=== PATIENT | female | born 1975 | race Caucasian/White ===

== ENCOUNTER 2023-03-24 06:40 | Day surgery (SDC) | payer OTHER ==
[2023-03-22 10:20] VITALS: BP 114/78
[~2023-03-24] VITALS: Ht 172.7 cm; Wt 109.1 kg
[~2023-03-24 06:40] MED LIST: GINKGO BILOBA40 M1 PO; LIPITOR10 MG; TRULICITY0.75 MG/0. SQ; VITAMIN D31250 MC1 PO
[2023-03-24 07:20] VITALS: BP 108/78
--- NOTE | 2023-03-24 10:28 | NUR ---
03/24/23 1028 Susana Das 1018 PT TO PACU ALERT AND AWAKE, PT COUGHTING FREQUENTLY PILLOW PLACED ON ABD FOR SUPPORT WHEN SHE COUGHS. SMALL SIP OF WATER GIVEN TO PT TO HELP WITH DRY COUGH. PT ARRIVED ON ROOMAIR AND MAINTAINS SATS ABOVE 95% ON ROOM AIR.
[2023-03-24 10:47] VITALS: BP 100/67
--- NOTE | 2023-03-24 10:53 | NUR ---
1035: PT BACK TO DS RM 4 FROM PACU VIA STRETCHER AWAKE AND ALERT. PT COUGHING ON ARRIVAL AND USING PILLOW TO BRACE ABD. PT DENIES PAIN IN ABD OR NAUSEA WITH WATER, TOLERATES 250 MLS. WATER REFILLED AND PT DENIES ANYTHING TO EAT AT THIS TIME. PT PROVIDED PERSONAL CELL PHONE TO CALL . DC CRITERIA EXPLAINED TO PT, CALL LIGHT WITHIN REACH.
[2023-03-24] MEDS ORDERED: HYDROCODON-ACE1 EAC8 PO (11:43)
[2023-03-24 11:47] VITALS: BP 121/76
--- NOTE | 2023-03-24 12:58 | NUR ---
[id number]: PT USES CALL LIGHT TO NOTIFY RN OF URGE TO VOID. PT SITS AT SIDE OF BED PRIOR TO STANDING, DENIES DIZZINESS OR NAUSEA WITH AMBULATION. PT ABLE TO VOID 450 MLS YELLOW URINE WITH NO PROBLEMS, BACK TO DS RM 4 TO GET DRESSED. [id number]: DC INSTRUCTIONS PRESENTED VERBALLY AND WRITTEN TO PT AND SPOUSE, PROVIDED PAIN PRESCRIPTION AND AWARE OF NEED TO TAKE TO PHARMACY. PT DC FROM DS RM 4 VIA WC TO SPOUSE IN PERSONAL VEHICLE AT HOSPITAL ENTRANCE TO HOME.
--- NOTE | 2023-03-25 06:50 | OR ---
[facility] [address] [place], [place] [address] Signed DATE OF OPERATION: 03/24/2023 SURGEON: Bobo Blank MD PREOPERATIVE DIAGNOSES: 1. 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 2. Supraumbilical trocar site incisional hernia (1.3 cm). POSTOPERATIVE DIAGNOSES: 1. 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 2. Incarcerated epigastric hernia (1.3 cm). PROCEDURES: 1. Excision of epigastric lipoma. 2. Primary epigastric herniorrhaphy. ESTIMATED BLOOD LOSS: None. INDICATIONS: Chester is a 47-year-old female with a body mass index of 38. She was referred to me with two issues. Back in 2014, she underwent laparoscopic gastric banding at [facility] in [place], [place]. It was causing her some trouble and she had it removed at [facility] in [place], [place] in October of 2021. There was some concern about a subxiphoid epigastric hernia. This subcutaneous mass cannot be visualized from inside. Therefore, it was left in place. More recently, she had been to her primary care provider. You can feel this mass just below the xiphoid process. It has been causing her a lot of pain. She can also feel a lump just above the umbilicus as well. An ultrasound confirmed the 2.8 x 1.4 x 2.7 cm lipoma just below the xiphoid process and then just above the umbilicus, she has 1.3 cm fascial defect containing fat. She understands there was a differential diagnosis for the fascial defect including epigastric hernia, common, umbilical hernia and trocar site incisional hernia. She had originally lost 100 pounds from the gastric band surgery, but she gained all the way back. She was asked to see me with respect to the above. In the office, I gave her a brochure on hernias and we looked at it carefully. She understands the difference between a primary suture repair and a mesh repair. She also understands that with lipomas, we simply excise those. They have a tendency to recur in the same or other locations. There is risk to her surgery including, but not limited to bleeding, infection, scarring, change in contour of the skin, damage to bowel, infection of mesh requiring removal, recurrent hernias and recurrent lipomas. She had expressed Electronically Signed By: BOBO BLANK MD 03/25/23 0650 PATIENT NAME: CHESTER HARO OPERATIVE REPORT DATE OF : 73 REPORT #: [id number] PHYSICIAN: BOBO BLANK MD PCP: ALONSO EDGAR PA-C REPORT IS CONFIDENTIAL AND NOT TO BE RELEASED WITHOUT AUTHORIZATION [address] [address] Signed understanding and wished to proceed. DESCRIPTION OF PROCEDURE: I met with Chetser and her in our preop area along with our nurse. We all agreed on the two areas and we marked them appropriately. After this, Chester was taken to the operating room and placed in the supine position under general endotracheal tube anesthesia. She was given preoperative antibiotics along with subcutaneous heparin. SCDs were utilized. She was prepped and draped in the usual sterile fashion. We started with a vertical incision over the subxiphoid mass. Sure enough, this proved to be a lipoma. It was fully excised bluntly and with the help of the cautery. We injected local anesthetic into the wound. The wound was irrigated and suctioned out until clear. We closed the dermis with interrupted 3-0 subcuticular Monocryl sutures. The skin edges were reapproximated with a running 5-0 fast absorbing plain gut suture. After this, we made a vertical incision just above the umbilicus over the palpable mass. Indeed, this was herniated fat. We found that it was just above the umbilicus by 1 cm or so. As we worked our way around, we found that it contained a little bit of the falciform ligament. It was secured with a Pean clamp, divided, and then tied with 0 Vicryl ligature. The hernia sac and preperitoneal fat were amputated and passed off the field. We could see that in order to place the mesh, we would have to open up the fascial defect in order to move the falciform ligament. That seemed unnecessary for hernia of the size at this time. We went ahead and closed the small fascial defect transversely with interrupted [id number] and simple #1 Prolene sutures. Indeed, the fascial defect was only about 1.3 cm in diameter. Local anesthetic was injected into the wound. The wound was irrigated and suctioned out until clear. We closed the subcutaneous tissues with interrupted 3-0 Monocryl sutures. The dermis was reapproximated with interrupted 3-0 subcuticular Monocryl sutures. Skin edges were reapproximated with a running 5-0 fast absorbing plain gut suture. Dry gauze and tape were applied to both incisions. Chester was awakened from anesthesia, extubated in the OR, and taken to recovery room in stable condition. Bobo Blank MD ALB/MODL /[id number] cc: VISHNU Zamarripa Electronically Signed By: BOBO BLANK MD 03/25/23 0650 PATIENT NAME: CHESTER HARO OPERATIVE REPORT DATE OF : 73 REPORT #: [id number] PHYSICIAN: BOBO BLANK MD PCP: ALONSO EDGAR PA-C REPORT IS CONFIDENTIAL AND NOT TO BE RELEASED WITHOUT AUTHORIZATION [address] [address] Signed Bobo Blank MD Copies: KVNG JALLOH ANDREW L MD ~ Electronically Signed By: BOBO BLANK MD 03/25/23 0650 PATIENT NAME: CHESTER HARO OPERATIVE REPORT DATE OF : 73 REPORT #: [id number] PHYSICIAN: BOBO BLANK MD PCP: ALONSO EDGAR PA-C REPORT IS CONFIDENTIAL AND NOT TO BE RELEASED WITHOUT AUTHORIZATION
--- NOTE | 2023-03-26 12:52 | PATH ---
[facility] [address] [facility] [place] [place] [address] Signed SPECIMEN(S): A EPIGASTRIC SUBCUTANEOUS MASS SPECIMEN SOURCE: A. EPIGASTRIC SUBCUTANEOUS MASS CLINICAL HISTORY: Umbilical hernia, lipoma FINAL PATHOLOGIC DIAGNOSIS: Epigastric subcutaneous mass: - [place] lobulated adipose and slight fibrous tissue consistent with lipoma. JVR:[facility] MICROSCOPIC EXAMINATION: Histologic sections of all submitted blocks are examined by light microscopy. These findings, together with the gross examination, support the pathologic diagnosis. GROSS DESCRIPTION: A. The specimen, labeled and designated "Pankaj, epigastric subcutaneous mass," is received in formalin and consists of a fragmented portion of yellow-beckham to red-brown lobulated fatty tissue (3.5 x 3.0 x 1.4 cm). The tissue is inked blue, and sectioning reveals red to yellow-beckham lobulated fatty cut surfaces. Light Rail Operator sections are submitted in cassette (A1). VB (under the direct supervision of a pathologist) The Gross Description was prepared using a voice recognition system. The report was reviewed for accuracy; however, sound-alike word errors, addition and/or deletions may occur. If there is any question about this report, please contact Client Services. PERFORMING LABORATORY: Technical component was performed by [facility], [address] [place] [id number] (CLIA# [id number]). Professional interpretation was performed by [facility] - [facility], [address] [place] [id number] (CLIA#: [id number]). Diagnostician: Mj Baca MD Pathologist Electronically Signed 03/26/2023 PATIENT NAME: CHESTER HARO PATHOLOGY DATE OF : 73 REPORT #: [id number] PHYSICIAN: AIDE PATHOLOGY PCP: ALONSO EDGAR PA-C REPORT IS CONFIDENTIAL AND NOT TO BE RELEASED WITHOUT AUTHORIZATION [address] [address] Signed Copies: ~ PATIENT NAME: CHESTER HARO PATHOLOGY DATE OF : 73 REPORT #: [id number] PHYSICIAN: AIDE PATHOLOGY PCP: ALONSO EDGAR PA-C REPORT IS CONFIDENTIAL AND NOT TO BE RELEASED WITHOUT AUTHORIZATION
== END 2023-03-24 12:00 | disposition home or self-care (01) ==
LOC: DS 06:40
PROVIDERS: ATTEND Colon & Rectal Surgery
PROC: 0WUF0JZ Supplement Abdominal Wall with Synthetic Substitute, Open Approach (ICD-10-PCS; principal; 2023-03-24 08:30)
PROC: 0JB80ZZ Excision of Abdomen Subcutaneous Tissue and Fascia, Open Approach (ICD-10-PCS; 2023-03-24 08:30)
DX: K43.6 Other and unspecified ventral hernia with obstruction, without gangrene (principal); K42.0 Umbilical hernia with obstruction, without gangrene; D17.9 Benign lipomatous neoplasm, unspecified; Z91.040 Latex allergy status
CPT/HCPCS: 00750; J0131; J0690; J1100; J1644; J1885; J2250; J2405; J2704; J3490; J7121

== ENCOUNTER 2024-05-11 05:40 | Day surgery (SDC) | payer OTHER ==
[2024-05-09 08:38] VITALS: BP 118/80
[~2024-05-11] VITALS: Ht 172.7 cm; Wt 116.8 kg
[~2024-05-11 05:40] MED LIST changes: +ALOGLIPTIN6.25 MG PO; +ATORVASTATIN CA20 MG PO; +HYDROCODON-ACE1 EAC8 PO; +MOUNJARO2.5 MG/0.5 SQ; +VENTOLIN HFA18 GM INH; +WELLBUTRIN SR100 MG PO
[2024-05-11 06:06] VITALS: BP 11/72
--- NOTE | 2024-05-11 06:09 | NUR ---
GLADYS AT BS. WILL BE WAITING.
[2024-05-11] MEDS ORDERED: SODIUM CHLORIDE 0.9% 40 ML IV ONE (06:40)
[2024-05-11] MEDS ORDERED: BUPIVACAINE HCL 0.25% 50 ML MDV ONE (06:40)
[2024-05-11] MEDS ORDERED: iopamidoL 30 ML VIAL ONE (06:40)
--- NOTE | 2024-05-11 06:42 | NUR ---
scds on and connected to machine/on
[2024-05-11] MEDS ORDERED: SUGAMMADEX SODIUM 200 MG/2 ML ML ONE (06:46)
[2024-05-11] MEDS ORDERED: DEXAMETHASONE SOD PHOS 4 MG/ML VIAL ONE (06:46)
[2024-05-11] MEDS ORDERED: KETOROLAC TROMETHAMINE 30 MG/ML VIAL ONE (06:46)
[2024-05-11] MEDS ORDERED: SUCCINYLCHOLINE IN 0.9% NACL 200 MG/10 ML SYRINGE ONE (06:46)
[2024-05-11] MEDS ORDERED: LACTATED RINGER'S 1,000 ML IV ONE (06:46)
[2024-05-11] MEDS ORDERED: propofoL 200 MG/20 ML VIAL ONE (06:46)
[2024-05-11] MEDS ORDERED: ROCURONIUM BROMIDE 50 MG/5 ML SYR ONE (06:46)
[2024-05-11] MEDS ORDERED: METOCLOPRAMIDE HCL 10 MG/2 ML SDV ONE (06:46)
[2024-05-11] MEDS ORDERED: ondansetron HCL 4 MG/2 ML VIAL ONE (06:46)
[2024-05-11] MEDS ORDERED: fentaNYL citrate 100 MCG/2 ML VIAL ONE (06:47)
[2024-05-11] MEDS ORDERED: MIDAZOLAM HCL 2 MG/2 ML VIAL ONE (06:47)
[2024-05-11] MEDS ORDERED: FAMOTIDINE 20 MG/ 2 ML VIAL ONE (06:47)
[2024-05-11] MEDS ORDERED: LIDOCAINE HCL 4% 5 ML AMP ONE (06:47)
[2024-05-11] MEDS ORDERED: HEParin SOD (PORCINE) 5,000 UNIT/0.5 ML SYR SUB-Q SCH (07:00)
[2024-05-11] MEDS ORDERED: CEFAZOLIN SODIUM 2 GM/20 ML SYR IV SCH (07:00)
--- NOTE | 2024-05-11 07:23 | NUR ---
VISITED DURING SPIRITUAL CARE ROUNDS. PT SUPPORTED BY AND DAUGHTER IN ROOM. STRONG RELATIONAL RESOURCES IN EVIDENCE. ALL DENIED IMMEDIATE NEEDS. INJECTION MOLDING MACHINE TENDER PROVIDED SUPPORTIVE PRESENCE, HOSPITALITY, PRAYER, FACILITATED INTERACTION WITH VISITING THERAPY ANIMAL. PT AND FAMILY EXPRESSED GRATITUDE.
[2024-05-11] MEDS ORDERED: IBLOOD GLUCOSE TEST STRIP 1 EA TEST ONE (07:28)
--- NOTE | 2024-05-11 07:34 | NUR ---
REVENUE ACCOUNTING MANAGER HAS BEEN IN TO TALK WITH PT
[2024-05-11] MEDS ORDERED: fentaNYL citrate 50 MCG/ML SDV IV PRN (07:45)
[2024-05-11] MEDS ORDERED: PROCHLORPERAZINE EDISYLATE 10 MG/2 ML VIAL IV PRN (07:45)
[2024-05-11] MEDS ORDERED: IBLOOD GLUCOSE TEST STRIP 1 EA TEST VI PRN (07:45)
[2024-05-11] MEDS ORDERED: droPERidol 5 MG/2 ML VIAL IV PRN (07:45)
[2024-05-11] MEDS ORDERED: NALOXONE HCL 0.4 MG SYR IV PRN ×2 (07:45→09:45)
[2024-05-11] MEDS ORDERED: MORPHINE SULFATE 10 MG/ML VIAL IV PRN (07:45)
[2024-05-11] MEDS ORDERED: METOCLOPRAMIDE HCL 10 MG/2 ML SDV IV PRN (07:45)
[2024-05-11] MEDS ORDERED: ondansetron HCL 4 MG/2 ML VIAL IV PRN (07:45)
[2024-05-11] MEDS ORDERED: droPERidol 5 MG/2 ML VIAL ONE (08:10)
[2024-05-11] MEDS ORDERED: SEVOFLURANE 250 ML BTL ONE (08:33)
[2024-05-11] MEDS ORDERED: MORPHINE SULFATE 10 MG/ML VIAL ONE (08:34)
[2024-05-11] MEDS ORDERED: ALBUTEROL/IPRATROPIUM 3 ML NEB ONE (09:33)
[2024-05-11] MEDS ORDERED: IBUPROFEN600 MG PO (09:44)
[2024-05-11] MEDS ORDERED: OXYCODON-ACETA1 EAC2 PO (09:44)
[2024-05-11] MEDS ORDERED: ACETAMINOPHEN 500 MG TAB PO PRN (09:45)
[2024-05-11] MEDS ORDERED: IBUPROFEN 600 MG TAB PO PRN (09:45)
[2024-05-11] MEDS ORDERED: OXYCODONE/APAP 7.5/325 TAB PO PRN (09:45)
[2024-05-11] MEDS ORDERED: ACETAMINOPHEN500 MG PO (09:45)
[2024-05-11] MEDS ORDERED: LACTATED RINGER'S 1,000 ML IV SCH (09:45)
--- NOTE | 2024-05-11 10:05 | NUR ---
05/11/24 1005 JORGE WALDROP 0928 PT ARRIVED TO PACU VIA STREACHER. GM VIDEO TIM Ely HAVING TO USE JAW THRUST TO KEEP PT AIRWAY PATIENT. PT HAS ORAL AIRWAY IN PLACE AND ON 10L O2 VIA MASK. PT OXYGEN SATURATION AT 88% 0929 PT OXYGEN AT 88%. OXYGEN UPPED TO 12L VIA FACE MASK. CONTINOUS JAW THRUST BEING USED. 0930 PT OXYGEN CONTINUES AT 88-89% WITH ORAL AIRWAY IN PLACE AND JAW THRUST CONTINUOUSLY. TIM Ely CRNA PLACED PT ON NON REBREATHER OXYGEN UP TO 15L. 0932 OXYGEN SAT AT 93% WITH CONTINUOUS JAW THRUST BEING USED, AND PT ON 15L O2 VIA NON REBREATHER. 0934 PT PLACED SITTING UPRIGHT, JAW THRUST BEING USED. PT STARTS COUGHING. PT ABLE TO FOLLOW COMMAND OF OPENING MOUTH. ORAL AIRWAY REMOVED BY TIM Ely CRNA. PT AT 10% OXGYEN SATURATION ON 15L VIA NON REBREATHER. 0935 BLOOD GLUCOSE 156. 0938 TIM Ely CRNA STARTS DUONEB FOR PATIENT. PT PLACED ON 10L VIA MASK DURING DUONEB TREATMENT. PT AT 100% O2 SAT. 0944 DUONEB TREATMENT COMPLETE. PT PLACED ON OXYGEN MASK AND REDUCED OXYGEN TO 6L. PT STAYING AT 100% O2 SAT. 0952 PT OXYGEN SATUATION STAYING AT 100%. PT TAKEN OFF OF OXYGEN. 0957 PT APNIC, OXYGEN DROPS DOWN TO 92%. PT PLACED ON 2 L VIA NASAL CANULLA. 1004 PT ON 2L VIA NASAL CANULLA. PT MAINTANING O2 SAT ABOVE 96%. PT SITTING UPRIGHT AND STATES SHE HAS NO PAIN OR NAUSEA AT THIS TIME.
[2024-05-11 10:35] VITALS: BP 116/67
--- NOTE | 2024-05-11 10:38 | NUR ---
AT BEDSIDE. DRINKING WATER EATING JELLO.CALL LIGHT GIVEN.
--- NOTE | 2024-05-11 11:15 | NUR ---
RESTING QUIETLY. DENIES PAIN OR NEED FOR RX. OFF 02 FOR RA CHECK. AT 89 TO 90 % ON RA. 02 BACK ON.
[2024-05-11 11:30] VITALS: BP 101/70
--- NOTE | 2024-05-11 11:30 | NUR ---
OFF 02 AGAIN AND MAINTAINING RA SAT 95% EATING CRACKERS. DENIES NEED TO VOID.
--- NOTE | 2024-05-11 12:06 | NUR ---
AMB IN HALLWAY. DENIES ANY DIZZINESS OR LIGHT HEADINESS. VOIDS 300MLS. GETTING DRESSED WANTS TO GO HOME.
[2024-05-11 12:15] VITALS: BP 101/70
--- NOTE | 2024-05-15 14:00 | OR ---
[facility] [address] [place], [place] [address] Signed DATE OF OPERATION: 05/11/2024 SURGEON: Tim Harrell MD PREOPERATIVE DIAGNOSES: 1. Chronic calculous cholecystitis. 2. Morbid obesity. 3. History of lap-band with subsequent removal. POSTOPERATIVE DIAGNOSES: 1. Chronic calculous cholecystitis. 2. Morbid obesity. 3. History of lap-band with subsequent removal. 4. Multiple gallstones in gallbladder. PROCEDURES: 1. Laparoscopic cholecystectomy with intraoperative cholangiogram. 2. Surgeon-directed fluoroscopy. ANESTHESIA: General endotracheal; Tim Dixon CRNA and local 10 mL of 0.25% Marcaine with epinephrine. INDICATION: This 48-year-old woman is a patient of CRISTEL Balderrama. She lives in [place]. She has had symptoms highly typical of biliary disease and underwent a gallbladder ultrasound confirming gallstones. She has a distant history of lap-band placement with subsequent removal due to symptoms. She is admitted at this time to undergo cholecystectomy preferably by laparoscopic approach. Understanding the risk of bleeding, infection, bile duct injury, need for open procedure and other unforeseen complications. Understanding that she wished to proceed. FINDINGS: Gallbladder was somewhat distended and chronically inflamed. A fair amount of fat was noted in the region of the gallbladder and surrounding soft tissue. There was an 8 mm stone within the cystic duct which was withdrawn by milking the duct in retrograde fashion. Cholangiogram was normal. The gallbladder once excised showed multifaceted yellow gallstones within it, including small and large stones. PROCEDURE IN DETAIL: Electronically Signed By: TIM HARRELL MD 05/15/24 1400 PATIENT NAME: CHESTER HARO OPERATIVE REPORT DATE OF : 73 REPORT #: [id number] PHYSICIAN: TIM HARRELL MD PCP: ALONSO EDGAR PA-C REPORT IS CONFIDENTIAL AND NOT TO BE RELEASED WITHOUT AUTHORIZATION [facility] [address] [place], [place] [address] Signed The patient was brought to the operating room, given a general endotracheal anesthetic. Preoperative antibiotic of Ancef was given. Sequential compression device stockings used and heparin subcutaneously administered. The abdomen was prepared with a chlorhexidine solution and draped sterilely. Notably, there was a supraumbilical incision and epigastric incision from prior surgical interventions. An infraumbilical incision was made and using an open Kyle cannula technique, the abdomen was entered and pneumoperitoneum was achieved to a level of 14 mmHg with carbon dioxide gas using Kyle device. Intra-abdominal inspection showed no sign of ascites or carcinomatosis. Gallbladder was quite distended and hyperemic in appearance and chronically inflamed. The liver was reasonably normal despite her obesity. Three additional trocars were placed in usual configuration, subxiphoid, right midclavicular, and right anterior axillary line. Gallbladder was elevated cephalad and retracted cephalad at the infundibulum due to fair amount of omental fat. With cephalad and lateral retraction, the triangle of Calot was dissected free with all due care, maintaining dissection of the infundibulum of the gallbladder dominantly at the outset. A window was created between the cystic duct in the biliary plate identifying ultimately the cystic duct. It appeared relatively prominent. The cystic duct was milked proximally and a clip applied and a transverse choledochotomy made the cystic duct. There was no egress of bile. The cystic duct was milked in a retrograde fashion allowing for an 8 mm stone to be withdrawn from the cystic duct. At that point, bile flow was good. The stone was subsequently removed later. Using the Wright type cholangiocatheter, intraoperative cholangiography was undertaken showing free flow of contrast in the biliary tree with prompt emptying into the duodenum. There was no significant retrograde flow in the common hepatic duct and on that basis, 5 mg of morphine were given intravenously. Cholangiogram at 4 minute showed no improvement, but at 7 minutes retrograde filling to the proximal biliary tree was noted showing no sign of abnormality there. The catheter was removed. The cystic duct was triply clipped and divided. The gallbladder was then dissected free in a retrograde fashion using electrocautery. Gallbladder was placed in an endobag and extracted through the infraumbilical port site without problem, opened on the back table and found to have multiple yellow multifaceted gallstones. Some were large and some were quite small. There was no sign of neoplasm. Irrigation was undertaken in the subhepatic space. There was no untoward bleeding or other problems. The trocars removed under direct visualization showing no sign of bleeding. The infraumbilical incision was then reapproximated with interrupted 0 Vicryl suture. 10 mL of 0.25% Marcaine with epinephrine was injected locally. The skin closed with interrupted 3-0 Vicryl. Steri-Strips were applied. The patient was ultimately extubated and transferred to the recovery room in good condition having suffered no Electronically Signed By: TIM HARRELL MD 05/15/24 1400 PATIENT NAME: CHESTER HARO OPERATIVE REPORT DATE OF : 73 REPORT #: [id number] PHYSICIAN: TIM HARRELL MD PCP: ALONSO EDGAR PA-C REPORT IS CONFIDENTIAL AND NOT TO BE RELEASED WITHOUT AUTHORIZATION [facility] [address] [place], [place] [address] Signed complications. Sponge, needle, and instrument counts were reported as correct x3. MD DIEUDONNE Murcia/HAYLEY /[id number] cc: CRISTEL Balderrama Copies: ~ Electronically Signed By: TIM HARRELL MD 05/15/24 1400 PATIENT NAME: CHESTER HARO OPERATIVE REPORT DATE OF : 73 REPORT #: [id number] PHYSICIAN: TIM HARRELL MD PCP: ALONSO EDGAR PA-C REPORT IS CONFIDENTIAL AND NOT TO BE RELEASED WITHOUT AUTHORIZATION
--- NOTE | 2024-05-15 16:34 | PATH ---
[facility] [address] [facility] [place], [place] [address] Signed SPECIMEN(S): A GALLBLADDER AND STONES SPECIMEN SOURCE: A. GALLBLADDER AND STONES CLINICAL HISTORY: Cholecystitis with calculus FINAL PATHOLOGIC DIAGNOSIS: Gallbladder and stones: - Chronic calculous cholecystitis. - Pericystic lymph node with reactive histologic features. JVR:naty MICROSCOPIC EXAMINATION: Histologic sections of all submitted blocks are examined by light microscopy. These findings, together with the gross examination, support the pathologic diagnosis. GROSS DESCRIPTION: The specimen, labeled and designated "Tai Lira, gallbladder and stones," is received in formalin and consists of Specimen: Previously open gallbladder. Dimensions: 7.0 x 3.4 x 1.5 cm. Serosa: Mendoza-yellow congested smooth and glistening. Cystic Duct: Unobstructed. Calculi: Multiple pale yellow calculi measuring 5.5 x 3.5 x 1.8 cm in aggregate. Mucosa: Brown and velvety. Wall thickness: 0.7 cm. Lymph node: Single possible lymph node measuring 0.3 x 0.3 x 0.3 cm. Additional: None. Complementary Health Therapists sections are submitted in (A1). DIEUDONNE (under the direct supervision of a pathologist) The Gross Description was prepared using a voice recognition system. The report was reviewed for accuracy; however, sound-alike word errors, addition and/or deletions may occur. If there is any question about this report, please contact Client Services. PERFORMING LABORATORY: Technical component was performed by [facility], Rogerio Holt, PATIENT NAME: CHESTER LIRA PATHOLOGY DATE OF : 73 REPORT #: [id number] PHYSICIAN: THERESA MARTIN PCP: ALONSO EDGAR PA-C REPORT IS CONFIDENTIAL AND NOT TO BE RELEASED WITHOUT AUTHORIZATION [facility] [address] [facility] [place] [address] [place] [address] (CLIA# [id number]). Professional interpretation was performed by [facility] - [address] [id number] (CLIA#: [id number]). Diagnostician: Mj Baca MD Pathologist Electronically Signed 05/15/2024 Copies: ~ PATIENT NAME: CHESTER LIRA PATHOLOGY DATE OF : 73 REPORT #: [id number] PHYSICIAN: THERESA MARTIN PCP: ALONSO EDGAR PA-C REPORT IS CONFIDENTIAL AND NOT TO BE RELEASED WITHOUT AUTHORIZATION
== END 2024-05-11 12:10 | disposition home or self-care (01) ==
LOC: DS 05:40
PROVIDERS: ATTEND Surgery
PROC: 0FT44ZZ Resection of Gallbladder, Percutaneous Endoscopic Approach (ICD-10-PCS; principal; 2024-05-11 07:30)
DX: K80.10 Calculus of gallbladder with chronic cholecystitis without obstruction (principal); K58.1 Irritable bowel syndrome with constipation; E11.9 Type 2 diabetes mellitus without complications; E78.00 Pure hypercholesterolemia, unspecified; E66.01 Morbid (severe) obesity due to excess calories; Z68.37 Body mass index [BMI] 37.0-37.9, adult; Z79.85 Long-term (current) use of injectable non-insulin antidiabetic drugs; Z79.899 Other long term (current) drug therapy; Z98.84 Bariatric surgery status; Z91.040 Latex allergy status
CPT/HCPCS: 00790; 74300; J0330; J0690; J1100; J1644; J1790; J1885; J2250; J2270; J2405; J2704; J2765; J3010; J3490; J7121; Q9967